=== PATIENT | male | born 1980 | race Caucasian/White ===

== ENCOUNTER 2021-01-24 16:50 | Outpatient (CLI) | payer BC ==
[2021-01-25 14:35] LABS: SARS-CoV-2 PCR by NAA Not Detected (NotDetected)
== END 2021-01-24 16:51 | disposition home or self-care (01) ==
LOC: LABBT 16:50
PROVIDERS: ATTEND Student in an Organized Health Care Education/Training Program
DX: Z01.818 Encounter for other preprocedural examination (principal); J03.91 Acute recurrent tonsillitis, unspecified; R13.10 Dysphagia, unspecified; G47.30 Sleep apnea, unspecified; Z20.822 Contact with and (suspected) exposure to COVID-19
CPT/HCPCS: 93005; 93010; U0003; U0005

== ENCOUNTER 2021-01-29 06:30 | Day surgery (SDC) | payer BC ==
[2021-01-28 14:30] VITALS: BMI 29.8
[2021-01-29] MEDS ORDERED: SUGAMMADEX SODIUM 200 MG/2 ML VIAL ONE (07:57)
[2021-01-29] MEDS ORDERED: Fentanyl 250 MCG/5 ML VIAL ONE (07:57)
[2021-01-29] MEDS ORDERED: Ondansetron PF 4 MG/2 ML Vial ONE ×2 (08:13→08:22)
[2021-01-29] MEDS ORDERED: Lidocaine 1% PF 5 ML VIAL ONE (08:22)
[2021-01-29] MEDS ORDERED: PROPOFOL 200 MG/20 ML VIAL ONE (08:22)
[2021-01-29] MEDS ORDERED: Glycopyrrolate 0.2 MG/ML 5 ML SYRINGE ONE (08:22)
[2021-01-29] MEDS ORDERED: Dexamethasone 20 MG/5 ML VIAL ONE (08:22)
[2021-01-29] MEDS ORDERED: Rocuronium Bromide 10 MG/ML (10ML VIAL) ONE (08:22)
[2021-01-29] MEDS ORDERED: Hydrocodone-Acetamin 15 ML UDCUP ONE (10:06)
== END 2021-01-29 11:16 | disposition home or self-care (01) ==
LOC: SDC 06:30
PROVIDERS: ATTEND Student in an Organized Health Care Education/Training Program
PROC: 0CTPXZZ Resection of Tonsils, External Approach (ICD-10-PCS; principal; 2021-01-29)
DX: J03.91 Acute recurrent tonsillitis, unspecified (principal); J35.01 Chronic tonsillitis; G47.30 Sleep apnea, unspecified; J30.1 Allergic rhinitis due to pollen; J30.2 Other seasonal allergic rhinitis; E66.9 Obesity, unspecified; Z68.29 Body mass index [BMI] 29.0-29.9, adult; Z79.2 Long term (current) use of antibiotics; Z79.899 Other long term (current) drug therapy; Z88.0 Allergy status to penicillin
CPT/HCPCS: 88304; J1100; J2405; J2704; J3010